=== PATIENT | male | born 1940 | race Caucasian/White ===

== ENCOUNTER 2021-12-02 09:36 | Observation (INO) | payer MEDICARE ==
[2021-12-01 08:57] VITALS: BMI 30.1
[~2021-12-02 09:36] MED LIST: ACETAMINOPHEN TAB 500 MG TAB PO PRN; GABAPENTIN 300 MG CAP PO PRN; LIDOCAINE 1% (10MG/ML) FOR IV START INTRADERMA PRN; MELOXICAM 7.5 MG TAB PO PRN; ONDANSETRON 4 MG/2 ML VIAL IVP ONE; TRANEXAMIC ACID IN NACL,ISO-OS 1,000 MG in SALINE 1 100ML.BAG IVPB PRN
[2021-12-02] MEDS: LACTATED RINGERS 1,000 ML IV SCH (10:20)
[2021-12-02] MEDS ORDERED: TRANEXAMIC ACID IN NACL,ISO-OS 1,000 MG/100 ML BAG ONE (11:14)
[2021-12-02] MEDS ORDERED: HYDROmorphone (PF) 1 MG/ML ONE (11:14)
[2021-12-02] MEDS ORDERED: PHENYLEPHRINE-0.9% NACL SYG 1,000 MCG/10 ML SYRINGE ONE (11:14)
[2021-12-02] MEDS ORDERED: ROCURONIUM 10 MG/ML (5 ML VIAL) IV ONE (11:14)
[2021-12-02] MEDS ORDERED: SUCCINYLCHOLINE CHLORIDE 200 MG/10 ML VIAL IV ONE (11:14)
[2021-12-02] MEDS ORDERED: PROPOFOL 10 MG/ML 20 ML VIAL IV ONE (11:14)
[2021-12-02] MEDS ORDERED: fentaNYL (PF) 50 MCG/ML 2 ML AMP ONE (11:14)
[2021-12-02] MEDS ORDERED: ceFAZolin 1,000 MG in SODIUM CHLORIDE 0.9% 1,000 ML IRRIGATION ONE (11:38)
[2021-12-02] MEDS ORDERED: ROPIVACAINE 5 MG/ML 30 ML VIAL MISCELLANE ONE (11:42)
--- NOTE | 2021-12-02 12:27 | P.OP ---
Date of Procedure: 12/02/21 Preoperative Diagnosis: Severe osteoarthritis left hip Postoperative Diagnosis: Severe osteoarthritis left hip Procedure(s) Performed: Left total hip arthroplasty with a direct anterior approach Implants: [employer] Polarstem standard size 4 [employer] R3, 3 hole hemispherical acetabular shell, 54 mm [employer] Reflection 6.5 mm cancellus screw, 20 mm x 2 [employer] R3, XLPE 20 acetabular liner [employer] Oxinium femoral head 36 m, +4 All components were press-fit. The articulation is Oxinium on polyethylene. Anesthesia: GETA Surgeon: Robinson Grace Software Development Analyst #1: Karla Bridges Estimated Blood Loss (ml): 300 Pathology: other (Femoral head) Condition: stable Disposition: PACU Indications for Procedure: After failure of conservative treatment we discussed the surgical and nonsurgical treatment options at length. Patient wishes to proceed with a total hip arthroplasty with a direct anterior approach. Complications specific to this procedure were discussed at length, including but not limited to infection, leg length discrepancy, dislocation, nerve injury, and fracture. Covid-19 was also discussed at length with the patient, and they are aware of the current policies and procedures. The patient was given the option of delaying surgery, but they elect to proceed knowing these risks. Patient is aware of all these complications and informed consent was obtained Operative Findings: The operative findings are consistent with severe osteoarthritis of the left hip Description of Procedure: Patient was seen and evaluated in the preoperative area and the consent was reviewed. The operative site was marked with a skin marker. The patient was then brought to the operating room and given preoperative antibiotics int ravenously. 1 g of Tranexamic acid was also given intravenously. A general anesthetic was administered by the anesthesia department. The patient was then placed on the Bainbridge table with the bony prominences well-padded. The hip area was then prepped with a ChloraPrep solution and draped in the usual sterile fashion. A universal timeout was then performed, which confirmed the patient's name, elliott rgical site, ALLERGIES, and procedure being performed on the consent. Next the incision site was located at 1 cm distal and 2 cm lateral to the anterior superior iliac spine. The skin and subcutaneous tissues were sharply incised. Incision was carefully dissected down to the fascia overlying the tensor fascia germania muscle. This fascia was then incised in line with the incision. Care was taken to stay laterally in order to avoid injuring the lateral femoral cutaneous nerve. Next, using blunt finger dissection, the tensor fascia germania muscle was dissected off its investing fascia. The muscle was then carefully retracted laterally with a cobra retractor over the lateral neck of the femur. Next, the circumflex vessels were identified and cauterized using the AquaMantis device. The anterior hip capsule was then exposed. The capsule was then opened and an inverted T fashion. Cobra retractors were then placed intracapsularly. The retractors were maintained intracapsular throughout the procedure. The proximal femur was then visualized. Fluoroscopic x-rays were then taken in order to evaluate the preoperative leg lengths. A small amount of traction was placed on the leg. The femoral neck was then osteotomized at the appropriate level above the lesser trochanter. A small wedge of bone was then removed from the remaining femoral head. Next, using a corkscrew the femoral head was removed from the acetabulum. On gross visual inspection, the femoral head had complete loss of articular cartilage and multiple periarticular osteophytes. The femoral head was then measured. Attention was then turned to the acetabulum. The acetabulum was exposed and any remaining labrum was excised. Sequential reaming of the acetabulum was performed using fluoroscopic guidance until there was a good bed of bleeding cancellus bone. When the appropriate size was reached, a trial was then placed. The position and fit of the trial was checked with fluoroscopy. The trial was then removed. Then, using fluoroscopic guidance, the final implant was impacted at 20 of anteversion and 40 of abduction, and fully seated in the acetabulum. 2 screws were then placed in the acetabulum. Again fluoroscopy was used to check position of the screws. Next, the liner was then impacted, with a 20 elevated liner located in the anterior superior quadrant. Component locking was confirmed. Attention was then directed to the femur. With the aid of the Bainbridge table, the femur was externally rotated to approximately 130, extended, and adducted under the opposite leg. A side hook was then placed under the proximal femur, and the side hook elevator was used to elevate the proximal femur while releasing the capsule. Retractors were then placed. A capsular release was performed, as well as a release of the conjoined tendon, which afforded excellent visualization of the proximal femur. Next, a box osteotome was used to lateralize the proximal femur. A online merchandising manager was then used to locate the femoral canal. Sequential broaching was then performed with appropriate size which afforded excellent fixation in the proximal femur. A trial was then placed with appropriate head and neck, and the hip was gently reduced with the aid of the Bainbridge table. Fluoroscopy was then used to check position of the components, as well as to ensure equal leg lengths. The hip was then gently dislocated and the trials were then removed. Final implants were then impacted and the hip was again reduced. Final fluoroscopic x-rays confirmed that the components were in anatomic position, as well as equal leg lengths. The hip was also taken through range of motion, and found to be stable. The hip was then copiously irrigated with antibiotic solution with pulsatile lavage. The hip was then irrigated with Irrisept solution. The soft tissues were then injected with a ropivacaine solution. A second dose of 1 g of Tranexamic acid was also given intravenously. The fascia was then closed with 2-0 strata fix suture. The subcutaneous tissue was closed with 3-0 Vicryl. The subcuticular tissue was closed with 3-0 strata fix suture. The skin was then closed with Exofin skin glue. After the glue and dried, and Optifoam silver impregnated dressing was applied. The patient was then transferred to the recovery room in stable condition. The pharmacy affairs assistant Karla Bridges NP was required due to the complexity of surgery, and the need for skilled surgical supervisor for positioning, draping, exposure, retraction, and closure of the wound.
[2021-12-02] MEDS ORDERED: NALOXONE 0.4 MG/ML 1 ML VIAL IV PRN (12:56)
[2021-12-02] MEDS ORDERED: ONDANSETRON 4 MG/2 ML VIAL IVP PRN (12:56)
[2021-12-02] MEDS ORDERED: MAGNESIUM HYDROXIDE 2,400 MG/10 ML CUP PO PRN (12:56)
[2021-12-02] MEDS ORDERED: HYDROmorphone 0.5 MG/0.5 ML SYRINGE IVP PRN ×3 (12:56)
[2021-12-02] MEDS ORDERED: HYDROcodone/APAP 7.5-325MG 1 EACH TAB PO PRN (13:02)
[2021-12-02] MEDS: HYDROmorphone 0.5 MG/0.5 ML SYRINGE IVP PRN ×3 (13:19→13:43)
--- NOTE | 2021-12-02 13:34 | XR ---
EXAMINATION TYPE: XR Hip Limited LT DATE OF EXAM: 12/02/2021 Comparison: None Clinical History: 81-year-old male Status post hip surgery, assess surgical alignment Findings: Single portable AP view shows placement of left hip total arthroplasty. Acetabular cup and femoral st em components of the prosthesis are well seated without periprosthetic fracture. Alignment grossly an atomic. There is scattered soft tissue air related to recent operation. There is osteopenia. Degenera tive subarticular sclerosis left SI joint. Impression: Uncomplicated postoperative appearance left hip total arthroplasty.
--- NOTE | 2021-12-02 13:43 | FL ---
EXAMINATION TYPE: FL guidance operating room, XR Hip Limited LT DATE OF EXAM: 12/02/2021 COMPARISON: NONE HISTORY: 81-year-old male 8 year total left hip replacement FINDINGS: Intraoperative fluoroscopy is provided during performance of left hip total arthroplasty. FLUOROSCOPY Fluoroscopy time of 26 seconds was used during anterior total left hip replacement. 4 image/s docume nt/s the procedure. IMPRESSION: Intraoperative fluoroscopy as above.
[2021-12-02] MEDS: HYDROcodone/APAP 7.5-325MG 1 EACH TAB PO PRN (16:31)
--- NOTE | 2021-12-02 19:27 | P.CONS ---
History of Present Illness - Reason for Consult Consult date: 12/02/21 Medical management Requesting physician: Robinson Grace - Chief Complaint Hip pain - History of Present Illness This is a very pleasant 19-year-old patient who follows with Dr. Ira Patel. Chronic stable medical conditions include atrial fibrillation for which patient is on eliquis and beta tala, osteoarthritis, hypertension. Patient underwent left total hip arthroplasty. Pain at the operative site. No nausea vomiting. and a friend at the bedside. No nausea vomiting. No chest pain or shortness of breath. Review of systems: GEN.: Tired EYES: None HEENT: None NECK: None RESPIRATORY: None CARDIOVASCULAR: None GASTROINTESTINAL: None GENITOURINARY: None MUSCULOSKELETAL: Joint pains LYMPHATICS: None HEMATOLOGICAL: None PSYCHIATRY: None NEUROLOGICAL: None Past medical history to include: Atrial fibrillation, hypertension, osteoarthritis: Social history: Nonsmoker. Alcohol occasionally. . 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 EYES: Pupils equal. Conjunctiva normal. HEENT: External appearance of nose and ears normal, oral cavity grossly normal. NECK: JVD not raised; masses not palpable. HEART: First and second heart sounds are normal; no edema. LUNGS: Respiratory rate normal; clear to auscultation. ABDOMEN: Soft, nontender, liver spleen not palpable, no masses palpable. PSYCH: Alert and oriented x3; mood and affect normal. MUSCULOSKELETAL:No Clubbing/cyanosis;muscles-grossly intact. Dressing over the left hip incision site. Evidence of OA. NEUROLOGICAL: Cranial nerves grossly intact; no facial asymmetry, power and sensation grossly intact. LYMPHATICS: No lymph nodes palpable in the axilla and neck Assessment and plan: -Left l anterior hip total arthroplasty Pain management. Home dose of eliquis has been resumed by orthopedics. -Essential hypertension Resume Toprol-XL. Hold off amlodipine as blood pressures running off the lower side. -Obesity BMI 30.3 Weight loss measures -Primary osteoarthritis multiple joints Tylenol as needed -Chronic Leukoderma, asymptomatic This is sometimes associated with autoimmune disorders. Patient otherwise relatively healthy. Follow-up with family doctor. Eliquis resume. Resume Toprol-XL. Hold off amlodipine and benazepril as blood pressure during the lower side. Care was discussed with the patient. Questions answered. Activity started. Check CBC in the morning Thank you Dr. Grace Past Medical History Past Medical History: Atrial Fibrillation, Hypertension, Osteoarthritis (OA), Pneumonia, Skin Disorder Additional Past Medical History / Comment(s): steroid injection back-September,chronic back pain,covid pneumonia Jan 2021 History of Any Multi-Drug Resistant Organisms: None Reported Additional Past Surgical History / Comment(s): pain procedures,ORIF lt ankle Past Anesthesia/Blood Transfusion Reactions: No Reported Reaction Additional Past Anesthesia/Blood Transfusion Reaction / Comm: no hx blood transfusion Past Psychological History: No Psychological Hx Reported Smoking Status: Never smoker Past Alcohol Use History: Occasional, Rare Past Drug Use History: None Reported - Past Family History Mother Family Medical History: No Reported History Medications and Allergies Home Medications Medication Instructions Recorded Confirmed Type Apixaban [Eliquis] 5 mg PO BID 12/01/21 12/01/21 History Metoprolol Succinate (ER) [Toprol 50 mg PO QAM 12/01/21 12/01/21 History Xl] amLODIPine BESYLATE/BENAZEPRIL 1 cap PO QAM 12/01/21 12/01/21 History [amLODIPine BESYLATE/BENAZEPRIL 10-20 mg] traMADol HCl [Ultram] 50 mg PO BID 12/01/21 12/01/21 History Allergies Allergy/AdvReac Type Severity Reaction Status Date / Time No Known Allergies Allergy Verified 12/02/21 09:55 Physical Exam Vitals: Vital Signs Temp Pulse Pulse Pulse Resp BP BP 12/02/21 17:39 67 99/61 12/02/21 16:12 67 90/56 12/02/21 15:57 66 95/60 12/02/21 15:42 59 L 90/58 12/02/21 15:30 62 101/67 12/02/21 15:13 66 106/73 12/02/21 14:47 53 L 109/58 12/02/21 14:42 57 L 114/78 12/02/21 14:28 97.7 F 67 17 131/85 12/02/21 14:00 69 16 99/61 12/02/21 13:42 71 16 100/57 12/02/21 13:27 59 L 16 112/64 12/02/21 13:11 62 16 101/57 12/02/21 12:56 97 F L 70 16 106/62 12/02/21 10:04 97.2 F L 87 16 121/73 Pulse Ox 12/02/21 17:39 12/02/21 16:12 96 12/02/21 15:57 97 12/02/21 15:42 96 12/02/21 15:30 84 L 12/02/21 15:13 94 L 12/02/21 14:47 91 L 12/02/21 14:42 99 12/02/21 14:28 96 12/02/21 14:00 100 12/02/21 13:42 94 L 12/02/21 13:27 97 12/02/21 13:11 100 12/02/21 12:56 94 L 12/02/21 10:04 100 Intake and Output 12/02/21 12/02/21 12/02/21 06:59 14:59 22:59 Intake Total 851 240 Output Total 300 Balance 551 240 Intake: IV 851 Oral 240 Output: Estimated Blood Loss 300 Other: Weight 98.5 kg
[2021-12-02] MEDS: SENNOSIDES-DOCUSATE SODIUM 1 EACH TAB PO SCH (20:45)
[2021-12-02] MEDS ORDERED: ASPIRIN 325 MG TAB PO SCH (21:00)
[2021-12-03] MEDS: HYDROcodone/APAP 7.5-325MG 1 EACH TAB PO PRN ×3 (01:52→20:19)
[2021-12-03 06:50] LABS: Basophils % (A) 0 %; Eosinophils % (A) 0 %; HCT 38.5 % (39.0-53.0); HGB 12.6 gm/dL (13.0-17.5); Lymphocytes # (A) 1.6 k/uL (1.0-4.8); Lymphocytes % (A) 17 %; MCH 32.8 pg (25.0-35.0); MCHC 32.8 g/dL (31.0-37.0); MCV 100.1 fL (80.0-100.0); Mean Platelet Volume 7.8; Monocytes # (A) 1.3 k/uL (0-1.0); Monocytes % (A) 14 %; Neutrophils # (A) 6.4 k/uL (1.3-7.7); Neutrophils % (A) 67 %; Platelet Count 176 k/uL (150-450); RBC 3.85 m/uL (4.30-5.90); RDW 12.4 % (11.5-15.5); WBC 9.5 k/uL (3.8-10.6)
[2021-12-03] MEDS: LACTATED RINGERS 1,000 ML IV SCH (07:19)
[2021-12-03] MEDS: METOPROLOL SUCCINATE (ER) 50 MG TAB.ER.24H PO SCH (08:05)
[2021-12-03] MEDS: APIXABAN 5 MG TAB PO SCH ×2 (08:06→20:19)
--- NOTE | 2021-12-03 09:08 | P.PN ---
Subjective Progress Note Date: 12/03/21 Principal diagnosis: primary osteoarthritis left hip. Status post total left hip arthroplasty. this is an 81-year-old male who is postop day #1 status post total left hip arthroplasty with direct anterior approach. He has been having difficulty swallowing and urinating today. He is not complaining of a sore throat but states that food is getting stuck and he has been having to clear his throat often. He is having minimal pain to the left hip at this time. Vital signs are stable. Objective - Vital Signs Vital signs: Vital Signs Temp 98.4 F 12/03/21 08:00 Pulse 85 12/03/21 08:00 Resp 18 12/03/21 08:00 BP 107/69 12/03/21 08:00 Pulse Ox 94 L 12/03/21 08:00 FiO2 Intake & Output 12/02/21 12/03/21 12/03/21 18:59 06:59 18:59 Intake Total 1091 Output Total 300 300 Balance 791 -300 Weight 98.5 kg Intake: IV 851 Oral 240 Output: Urine 300 Estimated Blood Loss 300 Other: Voiding Method Toilet Urinal # Voids 2 - Exam is a pleasant 81-year-old male in no acute distress. He is alert and oriented 3. Exam of the head neck reveals no obvious deformity. There is slight prominence of his left clavicle and sternoclavicular joint compared to the right. Exam of the lower extremities reveals the left hip dressing is clean, dry and intact. He has full foot ankle motion without difficulty or pain. Neurovascular status to the lower extremity is intact. - Labs CBC & Chem 7: 12/03/21 06:27 Labs: Abnormal Lab Results - Last 24 Hours (Table) 12/03/21 Range/Units 06:27 RBC 3.85 L (4.30-5.90) m/uL Hgb 12.6 L (13.0-17.5) gm/dL Hct 38.5 L (39.0-53.0) % MCV 100.1 H (80.0-100.0) fL Monocytes # 1.3 H (0-1.0) k/uL Assessment and Plan (1) Postoperative urinary retention Current Visit: Yes Status: Acute Code(s): N99.89 - OTH POSTPROCEDURAL COMPLICATIONS AND DISORDERS OF SYS; R33.8 - OTHER RETENTION OF URINE SNOMED Code(s): 047662010 (2) Dysphagia Current Visit: Yes Status: Acute Code(s): R13.10 - DYSPHAGIA, UNSPECIFIED SNOMED Code(s): 95343484 (3) Osteoarthritis of left hip Current Visit: Yes Status: Acute Code(s): M16.12 - UNILATERAL PRIMARY OSTEOARTHRITIS, LEFT HIP SNOMED Code(s): 081222749947773 (4) S/P total left hip arthroplasty Current Visit: Yes Status: Acute Code(s): Z96.642 - PRESENCE OF LEFT ARTIFICIAL HIP JOINT SNOMED Code(s): 464792440238 Plan: the clinical findings are discussed with the patient. We'll await evaluation by internal medicine regarding the dysphasia and urinary retention. Continue ort hopedic care.
--- NOTE | 2021-12-03 14:27 | P.PN ---
Progress Note - Text Progress Note Date: 12/03/21 - Chief Complaint Hip pain Hospital course This is a very pleasant 19-year-old patient who follows with Dr. Ira Patel. Chronic stable medical conditions include atrial fibrillation for which patient is on eliquis and beta tala, osteoarthritis, hypertension. Patient underwent left total hip arthroplasty. Pain at the operative site. No nausea vomiting. and a friend at the bedside. No nausea vomiting. No chest pain or shortness of breath. December 03: Significant pain in the left hip with movement. Blood pressures running in the lower side. Amlodipine/benign combination held. Tolerating diet. No nausea vomiting. Active Medications Hydrocodone Bitart/Acetaminophen (Hydrocodone/Apap 7.5-325mg 1 Each Tab) 2 each PO Q6H PRN PRN Reason: Pain Scale 6 to 10 Stop: 01/01/22 12:57 Last Admin: 12/03/21 13:49 Dose: 2 each Hydrocodone Bitart/Acetaminophen (Hydrocodone/Apap 7.5-325mg 1 Each Tab) 1 each PO Q4H PRN PRN Reason: Pain Scale 1 to 5 Stop: 01/01/22 13:03 Last Admin: 12/03/21 04:58 Dose: 1 each Apixaban (Apixaban 5 Mg Tab) 5 mg PO BID WHITNEY; Protocol Stop: 01/02/22 09:01 Last Admin: 12/03/21 08:06 Dose: 5 mg Hydromorphone HCl (Hydromorphone 0.5 Mg/0.5 Ml Syringe) 0.125 mg IVP Q3HR PRN PRN Reason: Pain Scale 1 to 3 Stop: 01/01/22 12:57 Hydromorphone HCl (Hydromorphone 0.5 Mg/0.5 Ml Syringe) 0.5 mg IVP Q3HR PRN PRN Reason: Pain Scale 7 to 10 Stop: 01/01/22 12:57 Hydromorphone HCl (Hydromorphone 0.5 Mg/0.5 Ml Syringe) 0.25 mg IVP Q3HR PRN PRN Reason: Pain Scale 4 to 6 Stop: 01/01/22 12:57 Lactated Ringer's (Lactated Ringers) 1,000 mls @ 20 mls/hr IV .Q24H WHITNEY Stop: 01/01/22 06:03 Last Admin: 12/03/21 07:19 Dose: Not Given Lidocaine HCl (Lidocaine 1% (10mg/Ml) For Iv Start) 0.1 ml INTRADERMA PER PROTOCOL PRN PRN Reason: IV Start Stop: 01/01/22 06:03 Magnesium Hydroxide (Magnesium Hydroxide 2,400 Mg/10 Ml Cup) 2,400 mg PO DAILY PRN PRN Reason: Constipation Stop: 01/01/22 12:57 Metoprolol Succinate (Metoprolol Succinate (Er) 50 Mg Tab.Er.24h) 50 mg PO QAM WHITNEY Last Admin: 12/03/21 08:05 Dose: Not Given Naloxone HCl (Naloxone 0.4 Mg/Ml 1 Ml Vial) 0.2 mg IV Q2M PRN PRN Reason: Opioid Reversal Stop: 01/01/22 12:57 Ondansetron HCl (Ondansetron 4 Mg/2 Ml Vial) 4 mg IVP Q8HR PRN PRN Reason: Nausea And Vomiting Stop: 01/01/22 12:57 Senna/Docusate Sodium (Sennosides-Docusate Sodium 1 Each Tab) 2 each PO HS WHITNEY Stop: 01/01/22 21:01 Last Admin: 12/02/21 20:45 Dose: 2 each Past medical history to include: Atrial fibrillation, hypertension, osteoarthritis: Social history: Nonsmoker. Alcohol occasionally. . 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 Conjunctiva normal. HEENT: External appearance of nose and ears normal, oral cavity grossly normal. NECK: JVD not raised; masses not palpable. HEART: First and second heart sounds are normal; no edema. LUNGS: Respiratory rate normal; clear to auscultation. ABDOMEN: Soft, nontender, liver spleen not palpable, no masses palpable. PSYCH: Alert and oriented x3; mood and affect normal. MUSCULOSKELETAL:No Clubbing/cyanosis;muscles-grossly intact. Dressing over the left hip incision site. Evidence of OA. INVESTIGATIONS, reviewed in the clinical context: White count 9.5 hemoglobin 12.6 platelets 176 Assessment and plan: -Left anterior hip total arthroplasty Pain management. Home dose of eliquis has been resumed by orthopedics. -Essential hypertension Toprol-XL. Hold off amlodipine/benazepril as blood pressures running on the lower side. -Obesity BMI 30.3 Weight loss measures -Primary osteoarthritis multiple joints Tylenol as needed -Chronic Leukoderma, asymptomatic This is sometimes associated with autoimmune disorders. Patient otherwise relatively healthy. Follow-up with family doctor. Discussed with patient. Continue current medications. Pain control. PTOT. Thank you Dr. Grace
[2021-12-03] MEDS: SENNOSIDES-DOCUSATE SODIUM 1 EACH TAB PO SCH (20:20)
[2021-12-04] MEDS: LACTATED RINGERS 1,000 ML IV SCH (03:32)
[2021-12-04] MEDS: HYDROcodone/APAP 7.5-325MG 1 EACH TAB PO PRN ×2 (05:43→12:21)
[2021-12-04] MEDS: METOPROLOL SUCCINATE (ER) 50 MG TAB.ER.24H PO SCH (07:42)
[2021-12-04] MEDS: APIXABAN 5 MG TAB PO SCH (07:42)
[2021-12-04 08:08] VITALS: BP 106/63; PULSE 82; RESP 16; TEMP 98
--- NOTE | 2021-12-04 08:36 | P.DS ---
Providers Date of admission: 12/04/21 08:24 Expected date of discharge: 12/04/21 Attending physician: Robinson Grace Consults: 12/02/21 13:02 Consult Physician Routine Consulting Provider: Deondre Brink Consult Reason/Comments: medical management Do you want consulting provider notified?: Yes Primary care physician: Ira Patel - Discharge Diagnosis(es) (1) Postoperative urinary retention Current Visit: Yes Status: Acute (2) Dysphagia Current Visit: Yes Status: Acute (3) Osteoarthritis of left hip Current Visit: Yes Status: Acute (4) S/P total left hip arthroplasty Current Visit: Yes Status: Acute Hospital Course: This is an 81-year-old male with known history of degenerative arthritis of the left hip. The patient presents for evaluation. After discussion and consideration patient elects to proceed with total hip arthroplasty with direct anterior approach. The patient is seen preoperatively by primary care physician and cleared for surgery. Patient is admitted to [facility] on 12/02/2021 for total hip arthroplasty with direct anterior approach. The procedure is performed without complication or sequelae. The patient did have a little trouble swallowing and some urinary retention on postoperative day #1. These issues were resolved by postoperative day #2. The patient states that he is feeling well and able to swallow and void. The patient is otherwise doing well postoperatively. Labs and vital signs are stable on day of discharge. On day of discharge patient's hip incision is healing well. There is minimal erythema. There is no drainage noted at this time. There is minimal soft tissue swelling to the hip and thigh. Patient has full foot and ankle motion without difficulty or pain. Neurovascular status to the lower extremity is intact. Patient is discharged to home in good condition. Please see med rec for accurate list of home medications. Patient Condition at Discharge: Good Plan - Discharge Summary Discharge Rx Participant: Yes New Discharge Prescriptions: New Sennosides-Docusate Sodium [Senokot-S] 2 tab PO HS #60 tablet HYDROcodone/APAP 7.5-325MG [[place] 7.5-325] 1 - 2 tab PO Q6HR PRN #32 tab PRN Reason: Pain No Action traMADol HCl [Ultram] 50 mg PO BID Apixaban [Eliquis] 5 mg PO BID amLODIPine BESYLATE/BENAZEPRIL [amLODIPine BESYLATE/BENAZEPRIL 10-20 mg] 1 cap PO QAM Metoprolol Succinate (ER) [Toprol Xl] 50 mg PO QAM Discharge Medication List Apixaban [Eliquis] 5 mg PO BID 12/01/21 [History] Metoprolol Succinate (ER) [Toprol Xl] 50 mg PO QAM 12/01/21 [History] amLODIPine BESYLATE/BENAZEPRIL [amLODIPine BESYLATE/BENAZEPRIL 10-20 mg] 1 cap PO QAM 12/01/21 [History] traMADol HCl [Ultram] 50 mg PO BID 12/01/21 [History] HYDROcodone/APAP 7.5-325MG [[place] 7.5-325] 1 - 2 tab PO Q6HR PRN #32 tab 12/03/21 [Rx] Sennosides-Docusate Sodium [Senokot-S] 2 tab PO HS #60 tablet 12/03/21 [Rx] Follow up Appointment(s)/Referral(s): [facility] [[facility]] - 1-2 Days ([facility] will call you to schedule your in home physical therapy visits.) Robinson Grace, [Doctor of Osteopathic Medicine] - 2 Weeks Activity/Diet/Wound Care/Special Instructions: Weightbearing as tolerated with walker Keep dressing in place for 7 days unless saturated Resume Eliquis May shower over dressing Follow up with Dr. Robinson Grace in 2 weeks. Call [facility] with questions or concerns,
--- NOTE | 2021-12-04 20:52 | P.PN ---
Progress Note - Text Progress Note Date: 12/04/21 - Chief Complaint Hip pain Hospital course This is a very pleasant 19-year-old patient who follows with Dr. Ira Patel. Chronic stable medical conditions include atrial fibrillation for which patient is on eliquis and beta tala, osteoarthritis, hypertension. Patient underwent left total hip arthroplasty. Pain at the operative site. No nausea vomiting. and a friend at the bedside. No nausea vomiting. No chest pain or shortness of breath. December 03: Significant pain in the left hip with movement. Blood pressures running in the lower side. Amlodipine/benazepril combination held. Tolerating diet. No nausea vomiting. December 04: Pain much better. Blood pressure still in lower side. Continue to hold amlodipine/benazepril. Told the patient checked his blood pressure daily. Wants above 140 resumed the combination pill. Home medications reviewed Past medical history to include: Atrial fibrillation, hypertension, osteoarthritis: Social history: Nonsmoker. Alcohol occasionally. . 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 Conjunctiva normal. HEENT: External appearance of nose and ears normal, oral cavity grossly normal. NECK: JVD not raised; masses not palpable. HEART: First and second heart sounds are normal; no edema. LUNGS: Respiratory rate normal; clear to auscultation. ABDOMEN: Soft, nontender, liver spleen not palpable, no masses palpable. PSYCH: Alert and oriented x3; mood and affect normal. MUSCULOSKELETAL:No Clubbing/cyanosis;muscles-grossly intact. Dressing over the left hip incision site. Evidence of OA. INVESTIGATIONS, reviewed in the clinical context: White count 9.5 hemoglobin 12.6 platelets 176 Assessment and plan: -Left anterior hip total arthroplasty Pain management. Home dose of eliquis has been resumed by orthopedics. -Essential hypertension Toprol-XL. Hold off amlodipine/benazepril -Obesity BMI 30.3 Weight loss measures -Primary osteoarthritis multiple joints Tylenol as needed -Chronic Leukoderma, asymptomatic This is sometimes associated with autoimmune disorders. Patient otherwise relatively healthy. Follow-up with family doctor. Discussed with patient. Daily blood pressure check at home. Instructions given to the patient and . Thank you Dr. Grace
== END 2021-12-04 12:30 | disposition home health service (06) ==
LOC: OR 09:36 → 4SSUR 12:49 → OR 12-04 08:19 → 4SSUR 12-04 08:24
PROVIDERS: ADMIT Orthopaedic Surgery; ATTEND Orthopaedic Surgery
DX: M16.12 Unilateral primary osteoarthritis, left hip (principal); N99.89 Other postprocedural complications and disorders of genitourinary system; R33.9 Retention of urine, unspecified; R13.10 Dysphagia, unspecified; M85.88 Other specified disorders of bone density and structure, other site; I10 Essential (primary) hypertension; I48.91 Unspecified atrial fibrillation; E66.9 Obesity, unspecified; L81.5 Leukoderma, not elsewhere classified; Z79.01 Long term (current) use of anticoagulants; Z68.30 Body mass index [BMI] 30.0-30.9, adult; Z86.16 Personal history of COVID-19
CPT/HCPCS: 94760; 97530 ×2; 97161; 97535 ×2; 97165; 92610; 85025; 88300; 73501; 27130; G0378; C1776; J0330; J0690 ×3; J2405; J3010; J1170 ×2; J2795; J2370; J2704